=== PATIENT | female | born 1990 | race Two or more races ===

== ENCOUNTER 2019-05-19 12:41 | Inpatient (IN) | payer OTHER ==
[~2019-05-19] VITALS: Ht 157.5 cm; Wt 3.2 kg
[2019-05-19] MEDS ORDERED: FOLIC ACID0.8 M1 PO (13:04)
[2019-05-22] MEDS ORDERED: KETO10TA2 PO (07:46)
[2019-05-22] MEDS ORDERED: OXYC1TAB9 PO (07:46)
== END 2019-05-22 11:42 | disposition home or self-care (01) | DRG 788 ==
LOC: OB/GYN 12:41 → LDR 12:41 → OB/GYN 15:07
PROVIDERS: ADMIT Obstetrics & Gynecology Maternal & Fetal Medicine
PROC: 3E033VJ Introduction of Other Hormone into Peripheral Vein, Percutaneous Approach (ICD-10-PCS; 2019-05-19)
PROC: 4A1HXFZ Monitoring of Products of Conception, Cardiac Rhythm, External Approach (ICD-10-PCS; 2019-05-19)
PROC: 10D00Z1 Extraction of Products of Conception, Low, Open Approach (ICD-10-PCS; principal; 2019-05-19 13:00)
DX: O64.1XX0 Obstructed labor due to breech presentation, not applicable or unspecified (principal); Z37.0 Single live birth; Z3A.37 37 weeks gestation of pregnancy; E87.6 Hypokalemia